=== PATIENT | female | born 1955 | race Caucasian/White ===

== ENCOUNTER → 2019-04-14 | Outpatient (CLI) | payer BC ==
--- NOTE | 2019-04-15 11:35 | CT ---
EXAMINATION TYPE: CT abdomen pelvis w con DATE OF EXAM: 04/14/2019 COMPARISON: 01/05/2013 HISTORY: 64-year-old female abdominal pelvic pain, labored breathing from pressure lower abdomen TECHNIQUE: Contiguous axial scanning of the abdomen and pelvis following administration of 100 ml Iso jannet 300 IV contrast. Delayed images through the kidneys and coronal/sagittal reconstructions perform ed. CT DLP: 343.1 mGycm Automated exposure control for dose reduction was used. FINDINGS: Heart normal size without pericardial effusion. Lung bases clear without pleural effusion. Right hepatic dome cyst shows significant progression in size as compared to 2013 currently measuring 10.7 x 9.2 cm (versus 5.8 x 6.2 cm, previously). No additional focal liver lesion. Portal venous sys tem is patent. No biliary ductal dilatation. Gallbladder, adrenal glands, right kidney, spleen, and pancreas appear within normal limits. Small 8 mm medial left upper pole renal cortical cyst may be minimally larger from 2013. No dilated small bowel, free fluid, or free air. Moderate to large stool in the right side of the abdomen. Overall paucity of intra-abdominal fat with numerous small bowel loops containing low in the pelvis with bulging laxity of the levator ani muscu lature. Allowing for possibility of intra-abdominal fat, no abdominal lymphadenopathy is identified. Bladder urine distended. Uterus is not visualized and seems surgically absent. No abnormal fluid yunior ection in the pelvis or pelvic lymphadenopathy. Bones: Degenerative changes of the hips. Left L5 hemisacralization. Degenerative disc disease and fac et arthropathy throughout the visualized spine. IMPRESSION: 1. STATUS POST HYSTERECTOMY. THERE ARE NUMEROUS LOW-LYING SMALL BOWEL LOOPS WITHIN THE PELVIS AND BUL GING LAXITY OF THE LEVATOR ANI MUSCULATURE. CORRELATE FOR PELVIC FLOOR RELAXATION WITH MORE PRONOUNCE D PROTRUSION OF SMALL BOWEL ON THE RIGHT. 2. PROGRESSIVE ENLARGEMENT OF A RIGHT HEPATIC DOME CYST CURRENTLY MEASURING 10.7 X 9.2 CM (VERSUS 6.2 X 5.8 CM BACK IN 2013). CORRELATE TO IF MASS EFFECT FROM THIS CYST CONTRIBUTES TO ANY PRESSURE/PA IN. 3. MODERATE STOOL IN THE RIGHT SIDE OF THE ABDOMEN.
== END | disposition home or self-care (01) ==
LOC: RADCTMAIN 11:20
PROVIDERS: ATTEND Family Medicine
DX: K76.89 Other specified diseases of liver (principal); R93.3 Abnormal findings on diagnostic imaging of other parts of digestive tract; Z90.711 Acquired absence of uterus with remaining cervical stump
CPT/HCPCS: 74177; Q9967 ×2

== ENCOUNTER → 2023-08-25 | Outpatient (CLI) | payer MEDICARE ==
--- NOTE | 2023-08-25 11:26 | CT ---
EXAMINATION TYPE: CT abdomen wo con DATE OF EXAM: 08/25/2023 COMPARISON: 04/14/2019 HISTORY: Cystic disease of liver CT DLP: 147.20 mGycm Examination of the solid and hollow viscera is limited given the lack of contrast. FINDINGS: LUNG BASES: No evidence for nodule. No evidence for infiltrate. LIVER/GB: The gallbladder is unremarkable. Again noted is large hepatic cyst right hepatic lobe which appears to have increased in size and currently measures 13.3 x 10.4 cm versus 10.7 x 9.2 cm. No add itional lesions seen. PANCREAS: No pancreatic mass identified. No inflammatory process seen. SPLEEN: No evidence for splenomegaly. No intrasplenic lesions seen. ADRENALS: No adrenal nodules identified. No evidence for thickening. KIDNEYS: No evidence for renal mass. No nephrolithiasis. No hydronephrosis. BOWEL: Appendix has a normal appearance. No evidence of bowel obstruction. No inflammatory process. Lymph nodes: No evidence for adenopathy greater than 1 cm. Abdominal aorta: Atheromatous changes seen. No evidence for aneurysm. Other: No significant abnormality. IMPRESSION: 1. Hepatic cyst is noted to have enlarged slightly in interval.
== END | disposition home or self-care (01) ==
LOC: RADCTMAIN 08:49
PROVIDERS: ATTEND Family Medicine
DX: Q44.6 Cystic disease of liver (principal)
CPT/HCPCS: 74150

== ENCOUNTER → 2024-01-30 | Outpatient (CLI) | payer MEDICARE ==
[2024-01-30 19:33] LABS: Basophils # (A) 0.05 X 10*3/uL (0.00-0.10); Basophils % (A) 0.7 %; Eosinophils # (A) 0.16 X 10*3/uL (0.04-0.35); Eosinophils % (A) 2.2 %; HCT 44.2 % (37.2-46.3); HGB 15.1 g/dL (12.0-15.0); Lymphocytes # (A) 1.92 X 10*3/uL (0.90-5.00); Lymphocytes % (A) 25.9 %; MCH 29.7 pg (27.0-32.0); MCHC 34.2 g/dL (32.0-37.0); Mean Platelet Volume 9.8 FL (9.5-12.2); Monocytes # (A) 0.46 X 10*3/uL (0.20-1.00); Monocytes % (A) 6.2 %; NRBC Per 100 WBC 0 X 10*3/uL (0.00-0.01); Neutrophils # (A) 4.79 X 10*3/uL (1.80-7.70); Neutrophils % (A) 64.6 %; Platelet Count 209 X 10*3/uL (140-440); RBC 5.08 X 10*6/uL (4.10-5.20); RDW 13.2 % (11.5-14.5); WBC 7.41 X 10*3/uL (4.50-10.00)
[2024-01-30 20:38] LABS: ALT 34 U/L (8-44); AST 35 U/L (13-35); Albumin 4.2 g/dL (3.8-4.9); Alkaline Phosphatase 81 U/L (41-126); BUN/Creat Ratio 25.17 Ratio (12.00-20.00); Blood Urea Nitrogen 15.1 mg/dL (9.0-27.0); Calcium 9.2 mg/dL (8.7-10.3); Carbon Dioxide 23.8 mmol/L (21.6-31.8); Chloride 101 mmol/L (96-109); Glucose 87 mg/dL (70-110); Potassium 4.7 mmol/L (3.5-5.5); Sodium 137 mmol/L (135-145); Total Bilirubin 0.6 mg/dL (0.3-1.2); Total Protein 6.2 g/dL (6.2-8.2)
== END | disposition home or self-care (01) ==
LOC: LABWHC1 12:47
PROVIDERS: ATTEND Internal Medicine Gastroenterology
DX: R10.9 Unspecified abdominal pain (principal)
CPT/HCPCS: 36415; 80053; 85025

== ENCOUNTER 2024-02-10 05:55 | Day surgery (SDC) | payer MEDICARE ==
[2024-02-07 14:15] VITALS: BMI 19.1
[2024-02-10] MEDS: IV FLUID CONTINUATION 1,000 ML IV ONE (06:10)
[2024-02-10 06:29] VITALS: TEMP 98
[2024-02-10] MEDS: LACTATED RINGERS 1,000 ML IV SCH (06:29)
[2024-02-10] MEDS ORDERED: LIDOCAINE 1% INJ 10MG/ML (20 ML MDV) ONE (07:04)
[2024-02-10] MEDS ORDERED: PROPOFOL 10 MG/ML 20 ML VIAL IV ONE (07:04)
--- NOTE | 2024-02-10 07:24 | P.PCN ---
Date of Procedure: 02/10/24 Procedure(s) Performed: Brief history: Patient is a pleasant 68-year-old white female scheduled for an elective upper endoscopy as well as colonoscopy as a part of evaluation of diffuse abdominal pain and intermittent rectal bleeding as well as progressive weight loss of 10 pounds in the last 2 months duration Procedure performed: Esophagogastroduodenoscopy biopsy Colonoscopy Preoperative diagnosis: Diffuse abdominal pain Rectal bleeding Progressive weight loss Anesthesia: [facility] Procedure: After informed consent was obtained from the patient was brought into the endoscopy unit and IV sedation was administered by anesthesia under continuous monitoring. Initially upper endoscopy was done. The Olympus GF 160 video endoscope was inserted inserted into the mouth and esophagus intubated without any difficulty and was gradually advanced into the stomach and duodenum and carefully examined. The bulb and second part of the duodenum appeared normal. Biopsies were done from the duodenum to evaluate for celiac disease. The scope was then withdrawn into the stomach adequately insufflated with air and upon careful examination the antrum had diffuse moderate to severe gastritis and biopsies were done from this area. Mucosa of the body, cardia and fundus appeared normal. The scope was then withdrawn into the esophagus. The GE junction was located at 40 cm to the incisors. It appeared regular with no erythema erosions or ulcerations. Rest of the esophagus appeared normal. Patient tolerated the procedure well. At this time the patient continued to remain sedation. Initial digital rectal examination was normal. Olympus CF 160 video colonoscope was then inserted into the rectum and gradually advanced to the cecum without any difficulty. Careful examination was performed as the scope was gradually being withdrawn. The prep was excellent. The cecum, ascending colon, transverse colon, descending colon, sigmoid colon and rectum appeared normal. Retroflexion was performed in the rectum and no lesions were noted. Patient tolerated the procedure well. Impression: 1. Upper endoscopy revealed mild diffuse antral gastritis but no evidence of esophagitis or peptic ulcer disease 2. Colonoscopy was within normal limits with no evidence of colorectal neoplasia Recommendations: Findings of this examination were discussed with the patient as well as her family. She was advised to follow-up with the biopsy results. Recommend to have repeat screening colonoscopy in 10 years.
[2024-02-10 07:55] VITALS: BP 135/86; PULSE 71; RESP 18
== END 2024-02-10 09:02 | disposition home or self-care (01) ==
LOC: ORWHC2ENDO 05:55
PROVIDERS: ATTEND Internal Medicine Gastroenterology
DX: K29.50 Unspecified chronic gastritis without bleeding (principal); K62.5 Hemorrhage of anus and rectum; D72.820 Lymphocytosis (symptomatic)
CPT/HCPCS: 88305; 45378; 43239; J2003; J2704

== ENCOUNTER → 2024-07-30 | Outpatient (CLI) | payer MEDICARE | END | disposition home or self-care (01) | LOC: LABWHC1 12:35 | PROVIDERS: ATTEND Nurse Practitioner Family | DX: R10.9 Unspecified abdominal pain (principal) | CPT/HCPCS: 36415; 83516 ==

== ENCOUNTER → 2024-08-02 | Outpatient (CLI) | payer MEDICARE ==
[2024-08-02 12:28] LABS: African American GFR (CKD) >90 (>60 ml/min/1.73 sqM); Blood Urea Nitrogen 14 mg/dL (7-17); Non-African American GFR(CKD) >90 (>60 ml/min/1.73 sqM)
--- NOTE | 2024-08-02 13:24 | CT ---
EXAMINATION TYPE: CT abdomen w con CT DLP: 788.8 mGycm, Automated exposure control for dose reduction was used. DATE OF EXAM: 08/02/2024 12:58 PM COMPARISON: CT abdomen 08/25/2023, CT abdomen pelvis 04/14/2019 CLINICAL INDICATION:Female, 69 years old with history of K76.89 OTHER SPECIFIED DISEASES OF LIVER; li gunjan mass TECHNIQUE: Standard CT of the abdomen following the administration of 100 cc of Isovue 300 IV contr ast material and oral contrast. Coronal and sagittal reformats were performed. FINDINGS: LOWER CHEST: Unremarkable ABDOMEN LIVER: Noncirrhotic morphology. Stable right hepatic lobe 13.1 x 9.4 cm simple appearing cyst. Couple few scattered subcentimeter hypodense foci which are too small to characterize but are favored to re present cysts. Enlarged liver measuring 22.6 cm in CC dimension. GALLBLADDER AND BILE DUCTS: Unremarkable. PANCREAS: Unremarkable. SPLEEN: Unremarkable. ADRENAL GLANDS: Unremarkable. KIDNEYS AND URETERS: No evidence of hydronephrosis or renal calculus. The kidneys enhance symmetrical ly. Stable left renal superior pole 8 mm cortical cyst. No follow-up recommended. Contrast is demonst rated within both collecting systems or proximal ureters on the delayed phase. STOMACH AND BOWEL: Stomach and duodenum are unremarkable. Enteric contrast reaches the mid small medhat l. No focal bowel wall thickening or surrounding inflammatory changes identified. No evidence of medhat l obstruction. PERITONEUM: No evidence of pneumoperitoneum or free fluid. VASCULATURE: No evidence of aortic aneurysm. Tortuosity of the abdominal aorta. Portal venous system is patent. MUSCULOSKELETAL: No acute osseous abnormalities. Left L5 hemisacralization. Degenerative disc disease and facet arthropathy throughout the visualized time. LYMPH NODES: No evidence for lymphadenopathy. SOFT TISSUE/ABDOMINAL WALL: Unremarkable IMPRESSION: 1. No CT evidence for acute abdominal process. 2. Stable large right hepatic lobe simple appearing cyst. [facility], , 08/02/2024 1:21 PM
== END | disposition home or self-care (01) ==
LOC: RADCTMAIN 11:24
PROVIDERS: ATTEND Internal Medicine Gastroenterology
DX: K76.89 Other specified diseases of liver (principal)
CPT/HCPCS: 82565; 84520; 74160; 36415; Q9967